=== PATIENT | female | born 1940 | race Caucasian/White ===

== ENCOUNTER 2019-10-02 10:32 | Emergency (ER) | payer OTHER ==
[~2019-10-02] VITALS: Ht 154.9 cm; Wt 49.9 kg
[2019-10-02] MEDS ORDERED: ZOCOR20 MG (11:09)
== END 2019-10-02 11:39 | disposition home or self-care (01) ==
LOC: ER 10:32
DX: M54.41 Lumbago with sciatica, right side (principal)